=== PATIENT | male | born 1965 | race Caucasian/White ===

== ENCOUNTER 2017-06-19 17:42 | Emergency (ER) | payer OTHER ==
[2017-06-19] MEDS ORDERED: NS 0.9% 1000 ML* 1,000 ML IV ONE (18:18)
[2017-06-19] MEDS ORDERED: Thiamine IV* 100 MG/ML 2 ML VIAL IM ONE (18:20)
--- NOTE | 2017-06-19 18:39 | RAD ---
HISTORY: Hypoxia COMPARISONS: November 22, 2015 VIEWS: 1: frontal portable view of the chest at 6:24 PM FINDINGS: LINES AND TUBES: None. CARDIOMEDIASTINAL SILHOUETTE: The cardiomediastinal silhouette is normal for portable technique. PLEURA: The costophrenic angles are sharp. No pleural abnormalities are noted. LUNG PARENCHYMA: There is mild patchy alveolar opacification of the left lung base. ABDOMEN: The upper abdomen is clear. There is no subphrenic gas. BONES AND SOFT TISSUES: No bone or soft tissue abnormalities are noted. IMPRESSION: PATCHY LEFT BASILAR ATELECTASIS VERSUS EARLY CONSOLIDATION.
[2017-06-19 18:45] LABS: ABS Basophils 0.1 10^3/ul (0-0.2); ABS Eosinophils 0.3 10^3/ul (0-0.6); ABS Lymphocytes 3.1 10^3/ul (1.0-4.8); ABS Monocytes 1.2 10^3/ul (0-0.8); ABS Neutrophils 6.1 10^3/ul (1.5-7.7); ABS Nucleated RBC 0 10^3/ul; Eosinophil % 2.4 % (0-6); Hematocrit 53 % (42-52); Hemoglobin 18.5 g/dl (14.0-18.0); Lymphocyte % 28.8 % (25-47); Mean Corpuscular HGB Conc 35 g/dl (31-36); Mean Corpuscular Hemoglobin 34 pg (27-31); Mean Corpuscular Volume 96 fL (80-94); Mean Platelet Volume 9 um3 (7.4-10.4); Nucleated Red Blood Cells % 0.1; Platelet Count 173 10^3/ul (150-450); Red Blood Count 5.52 10^6/ul (4.0-5.4); Red Cell Distribution Width 13 % (10.5-15); White Blood Count 10.7 10^3/ul (3.5-10.8)
[2017-06-19] MEDS ORDERED: Thiamine IV* 100 MG, Folic Acid IV* 1 MG, Multiple Vitamin IV ADULT* 10 ML in NS 0.9% 1... IV ONE (18:49)
[2017-06-19 18:57] LABS: INR 0.98 (0.77-1.02)
[2017-06-19] MEDS ORDERED: Multivitamins ADULT w/MIN LIQ* 15 ML UDC PO SCH (19:00)
[2017-06-19 19:05] LABS: EGFR Non-African American 85.3 (>60)
--- NOTE | 2017-06-20 00:08 | ED ---
Kevin Diallo Abhishek, scribed for Adrien Garcia MD on 06/19/17 at 2007 . Substance Abuse/Use - HPI Summary HPI Summary: This patient is a 52 year old M presenting to [facility] with a chief complaint of EtOH intoxication for a few hours. The [employer] reports they received a call notifying them of a public intoxication incident involving the patient. Pt states that he regularly drinks a 12 pack. Pt states he does not use any other substances. Medications reviewed and reported. Allergies reviewed and reported. The [employer] brought the patient under a 2209 protocol due to public intoxication. Patient reports slurred speech. Patient denies chest pain, and recent falls. - History Of Current Complaint Chief Complaint: EDSubstanceAbuse Stated Complaint: 2208 Hx Obtained From: Patient Onset/Duration of Drug/ETOH Abuse: Hours Ingestion History: Type/Name Of Drug - Alcohol Overdose Characteristics: Oral Timing Of Abuse: Daily Character: Lethargic Aggravating Factor(s): Nothing Alleviating Factor(s): Nothing - Allergies/Home Medications Allergies/Adverse Reactions: Allergies Allergy/AdvReac Type Severity Reaction Status Date / Time MS Cimetidine AdvReac Unknown Unknown Verified 03/27/16 13:23 [From [facility]] Reaction Details PMH/Surg Hx/FS Hx/Imm Hx Cardiovascular History: Reports: Hx Hypertension Respiratory History: Reports: Hx Chronic Obstructive Pulmonary Disease (COPD) Musculoskeletal History: Reports: Hx Back Problems Psychiatric History: Reports: Other Psychiatric Issues/Disorders - mood disorder Denies: Hx Eating Disorder, Hx of Violent Episodes Against Others - Surgical History Surgery Procedure, Year, and Place: back surgery 2010 - Immunization History Date of Tetanus Vaccine: unknown Infectious Disease History: No Infectious Disease History: Denies: History Other Infectious Disease, Traveled Outside the [place] in Last 30 Days - Family History Known Family History: Positive: Cardiac Disease - grandparents, Hypertension, Renal Disease - Social History Alcohol Use: Occasionally Alcohol Amount: "bottle of bianca and some beer" Substance Use Type: Reports: Prescribed Smoking Status (MU): Heavy Every Day Tobacco Smoker Type: Cigarettes Amount Used/How Often: 1 PPD Length of Time of Smoking/Using Tobacco: 34 yrs Have You Smoked in the Last Year: Yes Review of Systems ENT: Negative Cardiovascular: Negative Respiratory: Negative Gastrointestinal: Negative Genitourinary: Negative Musculoskeletal: Negative Skin: Negative Neurological: Negative Positive: Depressed All Other Systems Reviewed And Are Negative: Yes Physical Exam - Summary Physical Exam Summary: Appearance: Well-appearing, Well-nourished; Plethoric; Skin: Warm, Dry, No rash Eyes: Normal, PERRL, EOMI, sclera anicteric ENT: Normal Neck: Supple, nontender Respiratory: Clear to auscultation Cardiovascular: S1, S2, no murmur, no rub, no gallop Abdomen: Soft, nontender, no organomegaly Bowel sounds: Present Musculoskeletal: Normal, Strength/ROM Intact, no edema, pulses symmetrical Neurological: Normal, A&Ox3, cranial nerves II-XII WNL, follows commands, gait not tested, sensation intact to pin and light touch; Neurological alert; Slurred speech Psychiatric: affect normal, behavior appropriate, dressed appropriately, judgment intact Triage Information Reviewed: Yes Vital Signs On Initial Exam: Initial Vitals Temp Pulse Resp BP Pulse Ox 97.8 F 90 18 142/88 95 06/19/17 17:43 06/19/17 17:43 06/19/17 17:43 06/19/17 17:43 06/19/17 17:43 Vital Signs Reviewed: Yes Diagnostics - Vital Signs Vital Signs Temp Pulse Resp BP Pulse Ox 06/19/17 17:43 97.8 F 90 18 142/88 95 - Laboratory Lab Results: Lab Results 06/19/17 06/19/17 06/19/17 Range/Units 18:36 18:36 18:36 WBC 10.7 (3.5-10.8) 10^3/ul RBC 5.52 H (4.0-5.4) 10^6/ul Hgb 18.5 H (14.0-18.0) g/dl Hct 53 H (42-52) % MCV 96 H (80-94) fL MCH 34 H (27-31) pg MCHC 35 (31-36) g/dl RDW 13 (10.5-15) % Plt Count 173 (150-450) 10^3/ul MPV 9 (7.4-10.4) um3 Neut % (Auto) 56.8 (38-83) % Lymph % (Auto) 28.8 (25-47) % Boundary % (Auto) 11.4 H (0-7) % Eos % (Auto) 2.4 (0-6) % Baso % (Auto) 0.6 (0-2) % Absolute Neuts (auto) 6.1 (1.5-7.7) 10^3/ul Absolute Lymphs (auto) 3.1 (1.0-4.8) 10^3/ul Absolute Monos (auto) 1.2 H (0-0.8) 10^3/ul Absolute Eos (auto) 0.3 (0-0.6) 10^3/ul Absolute Basos (auto) 0.1 (0-0.2) 10^3/ul Absolute Nucleated RBC 0 10^3/ul Nucleated RBC % 0.1 INR (Anticoag Therapy) 0.98 (0.77-1.02) Sodium 136 (133-145) mmol/L Potassium 4.0 (3.5-5.0) mmol/L Chloride 100 L (101-111) mmol/L Carbon Dioxide 24 (22-32) mmol/L Anion Gap 12 H (2-11) mmol/L BUN 12 (6-24) mg/dL Creatinine 0.93 (0.67-1.17) mg/dL Est GFR ( Amer) 109.7 (>60) Est GFR (Non-Af Amer) 85.3 (>60) BUN/Creatinine Ratio 12.9 (8-20) Glucose 116 H (70-100) mg/dL Calcium 9.7 (8.6-10.3) mg/dL Total Bilirubin 0.80 (0.2-1.0) mg/dL AST 59 H (13-39) U/L ALT 64 H (7-52) U/L Alkaline Phosphatase 92 (34-104) U/L Total Protein 7.3 (6.4-8.9) g/dL Albumin 4.3 (3.2-5.2) g/dL Globulin 3.0 (2-4) g/dL Albumin/Globulin Ratio 1.4 (1-3) Serum Alcohol 293 H (<10) mg/dL Result Diagrams: 06/19/17 18:36 06/19/17 18:36 Lab Statement: Any lab studies that have been ordered have been reviewed, and results considered in the medical decision making process. - Radiology Chest X-ray Radiology Interpretation Completed By: Radiologist - CXR reveals, per radiologist, PATCHY LEFT BASILAR ATELECTASIS VERSUS EARLY CONSOLIDATION. ED physician has reviewed this radiology report and agrees. - EKG 1831 EKG Interpretation: An EKG reveals normal axis, normal intervals and NSR at 93 bpm at 1831 Course/Dx - Course Course Of Treatment: The pt is a 52 y/o Male with a chief complaint of EtOH intoxication. Pt was brought in by the [employer] after they had received a call notifying them of a public intoxication incident. The pt reports slurred speech and states that he is a regular everyday drinker. Pt states he drinks a "12 pack " when asked how much he drinks daily. Pt denies chest pain and falling down at any point recently.AP chest xray shows some consolidation vs atelectasis in the LLL.Favor atelectasis .Patient has had no cough while in the ER or fever. The pt will be discharged to police custody with a dx of EtOH intoxication. - Diagnoses Provider Diagnoses: Alcohol intoxication Discharge - Discharge Plan Condition: Stable Disposition: HOME Referrals: No Primary Care Phys,NOPCP [Primary Care Provider] - Additional Instructions: Police must be called prior to discharge, patient will be in police custody on discharge The documentation as recorded by the Kevin conner Abhishek accurately reflects the service I personally performed and the decisions made by me, Adrien Garcia MD.
--- NOTE | 2017-06-20 01:19 | ED ---
Sumit Diallo Tiffany, scribed for Ani Shine MD on 06/20/17 at 0113 . Progress - Progress Note Progress Note: Patient is a sign out from Dr. Fernandez. He has had enough time to sober up for discharge. Course/Dx - Course Course Of Treatment: 52 y/o M BIB police for EtOH intoxication. He has been in ED for 7.5 hours, is sober enough for discharge. Patient will be discharged to police custody by recommendation. - Diagnoses Provider Diagnoses: Alcohol intoxication The documentation as recorded by the Sumit conner Tiffany accurately reflects the service I personally performed and the decisions made by , Ani Shine MD.
[2017-06-20 03:04] VITALS: BP 130/69
--- NOTE | 2017-06-20 07:50 | RAD ---
HISTORY: Intoxication, follow-up abnormal portable chest x-ray COMPARISONS: None VIEWS: 4: Frontal dual-energy and lateral views of the chest. FINDINGS: CARDIOMEDIASTINAL SILHOUETTE: The cardiomediastinal silhouette is normal. NACHO: The nacho are normal. PLEURA: The costophrenic angles are sharp. No pleural abnormalities are noted. LUNG PARENCHYMA: The lungs are clear. There has been interval resolution of the airspace disease of the left lower lung. ABDOMEN: The upper abdomen is clear. There is no subphrenic gas. BONES AND SOFT TISSUES: No bone or soft tissue abnormalities are noted. OTHER: None. IMPRESSION: NO ACTIVE CARDIOPULMONARY DISEASE.
== END 2017-06-20 01:30 | disposition home or self-care (01) ==
LOC: ED 17:42
DX: F10.129 Alcohol abuse with intoxication, unspecified (principal); J98.4 Other disorders of lung; F17.210 Nicotine dependence, cigarettes, uncomplicated; Z88.8 Allergy status to other drugs, medicaments and biological substances
CPT/HCPCS: 36415; 71045; 71046; 80053; 80320; 85025; 85610; 93005; 99282; A9270-GY; G0480; J3411

== ENCOUNTER 2018-03-29 18:20 | Emergency (ER) | payer OTHER ==
[2018-03-29 19:13] VITALS: BP 140/88
--- NOTE | 2018-03-29 19:23 | UC ---
Eye Complaint HPI - HPI Summary HPI Summary: 53 y/o male presents to the urgent care c/o Rt red eye w/ yellowish discharge since yesterday. 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 this morning he woke up w/ crusting yellowish discharge. He has nasal congestion and clear nasal discharge for the past 3 days. Pt denies LUCERO, visual disturbances, photophobia, eye pain, SOB, dizziness, chest pain, abdominal pain , N/v/d. - History of Current Complaint Chief Complaint: UCEye Stated Complaint: EYE COMPLAINT Time Seen by Provider: 03/29/18 19:21 Hx Obtained From: Patient Onset/Duration: Gradual Onset, Lasting Days - 1 day, Still Present, Worse Since - today Timing: Constant Severity Initially: Mild Severity Currently: Moderate Pain Intensity: 5 Pain Scale Used: 0-10 Numeric Location of Injury: Conjunctiva - Rt eye redness w/ yelowish drainage Character: Dull Aggravating Factor(s): Blinking Alleviating Factor(s): Nothing Associated Signs And Symptoms: Positive: Drainage (Purulent). Negative: Photophobia, Vision Impairment Bilateral, Vision Impairment Right, Vision Impairment Left, Fever, Swelling - Risk Factors Penetrating Injury Risk Factor: Negative Globe Rupture Risk Factors: Negative Acute Glaucoma Risk Factors: Negative Optic Artery Occlusion Risk Factors: Negative - Allergies/Home Medications Allergies/Adverse Reactions: Allergies Allergy/AdvReac Type Severity Reaction Status Date / Time cimetidine [From [employer]] Allergy GI Upset Verified 03/29/18 19:14 PMH/Surg Hx/FS Hx/Imm Hx Previously Healthy: Yes Endocrine History: Diabetes Cardiovascular History: Hypertension Respiratory History: Asthma - Surgical History Surgical History: Yes Surgery Procedure, Year, and Place: back surgery 2010 - Family History Known Family History: Positive: Cardiac Disease - grandparents, Hypertension, Renal Disease - Social History Occupation: Employed Full-time Lives: With Family Alcohol Use: Daily Alcohol Amount: "bottle of bianca and some beer" Substance Use Type: Prescribed Smoking Status (MU): Heavy Every Day Tobacco Smoker Type: Cigarettes Amount Used/How Often: 1 PPD Length of Time of Smoking/Using Tobacco: 34 yrs Have You Smoked in the Last Year: Yes Household Exposure Type: Cigarettes - Immunization History Most Recent Influenza Vaccination: HAS NOT HEAD Most Recent Tetanus Shot: UTD - 2014 Most Recent Pneumonia Vaccination: never Review of Systems All Other Systems Reviewed And Are Negative: Yes Constitutional: Positive: Negative Skin: Positive: Negative Eyes: Positive: Drainage - yellowish, Eye Redness - Rt eye. Negative: Photophobia ENT: Positive: Nasal Discharge - clear, Sinus Congestion Respiratory: Positive: Negative Cardiovascular: Positive: Negative Gastrointestinal: Positive: Negative Genitourinary: Positive: Negative Motor: Positive: Negative Neurovascular: Positive: Negative Musculoskeletal: Positive: Negative Neurological: Positive: Negative Psychological: Positive: Negative Is Patient Immunocompromised?: No Physical Exam - Summary Physical Exam Summary: Vital Signs Reviewed: Yes General: Well appearing, well nourished obese male in no apparent pain distress Eyes: Positive: RT Conjunctiva Inflamed - Visual acuity: WNL,Visual nelson: full to confrontation. PERRLA, EOMI intact w/out limitation or complaint of pain. eyelashes clear. mild tearing and yellowish drainage observed on RT eye. Left eye clear. No ciliary flush. No chemosis, No photophobia. Normal fundoscopic exam; no proptosis, exophthalmos, nystagmus. ENT: Positive: Normal ENT inspection, Hearing grossly normal, Pharynx normal, Nasal congestion, Nasal drainage - clear, TMs normal - B/L external ear canal clear , TM's WNL. Negative: Tonsillar swelling, Tonsillar exudate Neck: Positive: Supple, Nontender, No Lymphadenopathy Respiratory: Positive: Chest nontender, Lungs clear, Normal breath sounds, No respiratory distress Cardiovascular: Positive: RRR, No Murmur, Pulses Normal, Brisk Capillary Refill Abdomen Description: Positive: Nontender, No Organomegaly, Soft. Negative: CVA Tenderness (R), CVA Tenderness (L) Bowel Sounds: Positive: Present Musculoskeletal: Positive: Strength Intact, ROM Intact, No Edema Neurological Exam: Normal Psychological Exam: Normal Skin Exam: Normal Triage Information Reviewed: Yes Vital Signs: Initial Vital Signs Temp 98.1 F 03/29/18 19:09 Pulse 90 03/29/18 19:09 Resp 16 03/29/18 19:09 BP 140/88 03/29/18 19:09 Pulse Ox 97 03/29/18 19:09 Eye Complaint Course/Dx - Course Course Of Treatment: 53 y/o male presents to the urgent care c/o Rt red eye w/ yellowish discharge since yesterday. 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 this morning he woke up w/ crusting yellowish discharge. He has nasal congestion and clear nasal discharge for the past 3 days. Pt denies LUCERO, visual disturbances, photophobia, eye pain, SOB, dizziness , chest pain, abdominal pain, N/v/d. Hx obtained. Pt w/ RT bacterial conjunctivitis on examination. Pt Rx Ofloxacin ophthalmic drops. and advised if symptoms do not improve or worsen to f/u with Production Assembly Supervisor Dr Greg Ba in 2-3 days.Pt's BP is elevated today advised to decrease salt in diet, monitor BP and f/u with PCP for further management. D/C instructions explained. Pt understood and agreed w/ plan of care. - Differential Dx/Diagnosis Differential Diagnosis/HQI/PQRI: Conjunctivitis, Foreign Body, Keratitis, Penetrating Injury, Periorbital Cellulitis, Uveitis Provider Diagnosis: Bacterial conjunctivitis of right eye, Uncontrolled hypertension Discharge - Sign-Out/Discharge Documenting (check all that apply): Patient Departure - d/c home All imaging exams completed and their final reports reviewed: No Studies - Discharge Plan Condition: Stable Disposition: HOME Prescriptions: Ofloxacin 0.3% (Eye Drop) [Ocuflox OPTH 0.3% (Eye Drop)] 1 - 2 drop RIGHT EYE Q4H #1 btl Patient Education Materials: Low-Sodium Diet (ED), Conjunctivitis (ED) Referrals: Jesus RODRIGUEZ,Ramesh Russell [Primary Care Provider] - 2 Days Greg Ba MD [Medical Doctor] - 3 Days Additional Instructions: 1-Please apply ophthalmic drops as instructed and finish the full course of treatment to avoid recurrent infection. encourage hand washing to avoid spread in the other eye 2-If you do not improve or if symptoms worsen please f/u with telecommunications operator Dr Romero in 2-3 days for further evaluation and treatment 3-Your BP is elevated today. please decrease salt in your diet, monitor BP and if it continues to be elevated please f/u with your PCP for further management - Billing Disposition and Condition Condition: STABLE Disposition: Home
== END 2018-03-29 19:45 | disposition home or self-care (01) ==
LOC: UCEAST 18:20
DX: H10.9 Unspecified conjunctivitis (principal); B96.89 Other specified bacterial agents as the cause of diseases classified elsewhere; I10 Essential (primary) hypertension; E11.9 Type 2 diabetes mellitus without complications; J45.909 Unspecified asthma, uncomplicated; F17.210 Nicotine dependence, cigarettes, uncomplicated; Z88.8 Allergy status to other drugs, medicaments and biological substances
CPT/HCPCS: 99202; G0463